=== PATIENT | female | born 1955 | race American Indian/Alaskan Native ===

== ENCOUNTER 2016-11-15 22:00 | Emergency (ER) | payer SELFPAY ==
[2016-11-15 22:19] VITALS: BP 151/103
[2016-11-16] MEDS ORDERED: BACTRIM DS PO ONE (02:37)
[2016-11-16] MEDS ORDERED: KEFLEX PO ONE (02:37)
[2016-11-16] MEDS ORDERED: MOTRIN PO ONE (02:38)
--- NOTE | 2016-11-16 02:42 | Emergency Department Report ---
ED Extremity Problem HPI - General Chief complaint: Animal Bite Stated complaint: POSS SPIDER BITES Time Seen by Provider: 11/16/16 02:02 Source: patient Mode of arrival: Ambulatory Limitations: No Limitations - History of Present Illness Initial comments: 60-year-old female past medical history hypertension presents with complaint of one day of bug bites to left ear and left inner arm. Also states she has had irritation and redness of the external left ear for one day. Patient denies any fevers chills denies any chest pain abdominal pain nausea or vomiting. States that she is suspicious that she may have been bitten by a spider in her home. Patient visibly showing the redness in her left inner arm region. Denies any headache or dizziness. MD Complaint: extremity pain Onset/Timin -: days(s) Location: left History of Same: No Severity scale (0 -10): 5 Quality: aching Consistency: constant Associated Symptoms: denies other symptoms - Related Data Previous Rx's Medication Instructions Recorded Last Taken Type HYDROcodone/APAP 5-325 [[place] 1 - 2 each PO Q6HR PRN #12 tablet 11/29/15 Unknown Rx 5/325] Levofloxacin [Levaquin] 750 mg PO QDAY #10 tablet 11/29/15 Unknown Rx Sulfamethoxazole/Trimethoprim 1 each PO BID #20 tablet 11/29/15 Unknown Rx [Bactrim DS TAB] Cephalexin [Keflex] 500 mg PO Q12HR #14 cap 11/16/16 Unknown Rx Ciprofloxacin HCl [Ciprofloxacin 500 mg PO Q12H #14 tab 11/16/16 Unknown Rx TAB] Ibuprofen [Motrin] 800 mg PO Q8HR PRN #30 tablet 11/16/16 Unknown Rx Sulfamethoxazole/Trimethoprim 1 each PO BID #14 tablet 11/16/16 Unknown Rx [Bactrim DS TAB] Allergies Allergy/AdvReac Type Severity Reaction Status Date / Time acetaminophen [From Percocet] Allergy Hives Verified 05/16/15 01:51 oxycodone HCl [From Percocet] Allergy Hives Verified 05/16/15 01:51 ED Review of Systems ROS: Stated complaint: POSS SPIDER BITES Other details as noted in HPI Constitutional: denies: chills, fever Eyes: denies: eye pain, eye discharge, vision change ENT: denies: ear pain, throat pain Respiratory: denies: cough, shortness of breath, wheezing Cardiovascular: denies: chest pain, palpitations Endocrine: no symptoms reported Gastrointestinal: denies: abdominal pain, nausea, diarrhea Genitourinary: denies: urgency, dysuria, discharge Musculoskeletal: denies: back pain, joint swelling, arthralgia Skin: denies: rash, lesions Neurological: denies: headache, weakness, paresthesias Psychiatric: denies: anxiety, depression Hematological/Lymphatic: denies: easy bleeding, easy bruising ED Past Medical Hx - Past Medical History Hx Hypertension: Yes Hx Psychiatric Treatment: Yes (Depression) - Surgical History Additional Surgical History: Hysterectomy - Social History Smoking Status: Never Smoker Substance Use Type: None - Medications Home Medications: Home Medications Medication Instructions Recorded Confirmed Last Taken Type HYDROcodone/APAP 5-325 [[place] 1 - 2 each PO Q6HR PRN #12 tablet 11/29/15 Unknown Rx 5/325] Levofloxacin [Levaquin] 750 mg PO QDAY #10 tablet 11/29/15 Unknown Rx Sulfamethoxazole/Trimethoprim 1 each PO BID #20 tablet 11/29/15 Unknown Rx [Bactrim DS TAB] Cephalexin [Keflex] 500 mg PO Q12HR #14 cap 11/16/16 Unknown Rx Ciprofloxacin HCl [Ciprofloxacin 500 mg PO Q12H #14 tab 11/16/16 Unknown Rx TAB] Ibuprofen [Motrin] 800 mg PO Q8HR PRN #30 tablet 11/16/16 Unknown Rx Sulfamethoxazole/Trimethoprim 1 each PO BID #14 tablet 11/16/16 Unknown Rx [Bactrim DS TAB] ED Physical Exam - General Limitations: No Limitations General appearance: alert, in no apparent distress - Head Head exam: Present: atraumatic, normocephalic - Eye Eye exam: Present: normal appearance, PERRL, EOMI - ENT ENT exam: Present: mucous membranes moist - Expanded ENT Exam Expanded Ear exam: Present: other (visible erythema left external helix region. No palpable fluctuance no visible abscess. There is no mastoid tenderness on palpation on clinical exam bilaterally. On inspection both auditory canals on otoscopic exam appear normal) Mouth exam: Present: normal external inspection - Neck Neck exam: Present: normal inspection, full ROM - Respiratory Respiratory exam: Present: normal lung sounds bilaterally. Absent: respiratory distress - Cardiovascular Cardiovascular Exam: Present: regular rate, normal rhythm. Absent: systolic murmur, diastolic murmur, rubs, gallop - GI/Abdominal GI/Abdominal exam: Present: soft, normal bowel sounds - Extremities Exam Extremities exam: Present: normal inspection - Expanded Upper Extremity Exam Left Shoulder Exam: Present: normal inspection, full ROM Upper Arm exam: Present: full ROM (range of motion left upper extremity intact shoulder elbow pronation supination in distal and), tenderness (visible red indurated region left inner bicep region from upper arm to elbow on the medial aspect of upper arm), erythema Elbow exam: Present: normal inspection, full ROM Forearm Wrist exam: Present: normal inspection, full ROM Hand Wrist exam: Present: normal inspection, full ROM Neuro motor exam: Present: wrist extension intact, thumb opposition intact, thumb IP flexion intact, thumb adduction intact, fingers 2-5 abduction intact Vascular: Present: normal capillary refill (capillary refill less than one second all fingers, distal sensation intact), radial pulse (distal radial pulse strong) - Back Exam Back exam: Present: normal inspection - Neurological Exam Neurological exam: Present: alert, oriented X3 - Psychiatric Psychiatric exam: Present: normal affect, normal mood - Skin Skin exam: Present: warm, dry, intact, normal color. Absent: rash - Expanded Skin Exam Expanded Description of rash: Present: erythematous 1 - Area of indurated erythematous cellulitic skin here no palpable abscess or fluctuance ED Course Vital Signs 11/15/16 22:14 Temperature 98.1 F Pulse Rate 73 Respiratory 16 Rate Blood Pressure 151/103 O2 Sat by Pulse 98 Oximetry ED Medical Decision Making - Medical Decision Making A/P: possible early perichondritis left ear, left upper extremity cellulitis 1-empiric coverage for left upper extremity cellulitis with Bactrim and Keflex, borders of erythema marked left inner bicep region. I advised patient to return in 48 hours for wound check or to return if an abscess forms for any fever or chills or significant spread of cellulitis 2-examination of external ear shows some evidence of early perichondritis at [place], no palpable fluctuance no visible abscess no visible purulent discharge. On otoscopic exam no mastoid tenderness b/l OR ear canal involvement. patient's hearing is intact on clinical exam. Will treat patient empirically for early perichondritis with ciprofloxacin. Patient referred to ENT. I explained to the patient what my concern is clinically and she stated that she understood and will follow up with ENT and take antibiotics as prescribed and to return to the ED for any worsening swelling redness fevers or chills difficulty hearing or any headaches. 3-Motrin 800 mg when necessary Critical care attestation.: If time is entered above; I have spent that time in minutes in the direct care of this critically ill patient, excluding procedure time. ED Disposition Clinical Impression: Cellulitis of left upper arm, Perichondritis of left external ear Disposition: DC- TO HOME OR SELFCARE Is pt being admited?: No Does the pt Need Aspirin: No Condition: Stable Instructions: Cellulitis (ED) Prescriptions: Cephalexin [Keflex] 500 mg PO Q12HR #14 cap Ciprofloxacin HCl [Ciprofloxacin TAB] 500 mg PO Q12H #14 tab Ibuprofen [Motrin] 800 mg PO Q8HR PRN #30 tablet PRN Reason: Pain Sulfamethoxazole/Trimethoprim [Bactrim DS TAB] 1 each PO BID #14 tablet Referrals: IVORY PATRICIO MD [Staff Physician] - 3-5 Days LYDIA GALO MD [Staff Physician] - 3-5 Days [facility] [Provider Group] - 3-5 Days [facility] [Provider Group] - 3-5 Days Forms: Accompanied Note, Work/School Release Form(ED) Time of Disposition: 02:47
== END 2016-11-16 03:08 | disposition home or self-care (01) ==
LOC: ED 22:00
DX: S40.862A Insect bite (nonvenomous) of left upper arm, initial encounter (principal); S00.462A Insect bite (nonvenomous) of left ear, initial encounter; L03.114 Cellulitis of left upper limb; H61.002 Unspecified perichondritis of left external ear; F32.9 Major depressive disorder, single episode, unspecified; Z88.8 Allergy status to other drugs, medicaments and biological substances; Z88.6 Allergy status to analgesic agent; I10 Essential (primary) hypertension; W57.XXXA Bitten or stung by nonvenomous insect and other nonvenomous arthropods, initial encounter; Y93.89 Activity, other specified; Y99.8 Other external cause status; Y92.89 Other specified places as the place of occurrence of the external cause
CPT/HCPCS: 99282

== ENCOUNTER 2019-12-06 16:52 | Emergency (ER) | payer MEDICARE ==
[2019-12-06 18:12] LABS: Basophils # (Auto) 0.1 K/mm3 (0.0-0.1); Basophils % (Auto) 1.2 % (0.0-1.8); Eosinophils # (Auto) 0.1 K/mm3 (0.0-0.4); Eosinophils % (Auto) 1.5 % (0.0-4.3); Hematocrit 37.8 % (30.3-42.9); Hemoglobin 12.3 gm/dl (10.1-14.3); Lymphocytes # (Auto) 1.5 K/mm3 (1.2-5.4); Mean Corpuscular HGB Conc 33 % (30-34); Mean Corpuscular Volume 82 fl (79-97); Monocytes # (Auto) 0.3 K/mm3 (0.0-0.8); Monocytes % (Auto) 5.4 % (0.0-7.3); Platelet Count 273 K/mm3 (140-440)
[2019-12-06 18:24] LABS: BUN/Creatinine Ratio 15; Blood Urea Nitrogen 17 mg/dL (7-17); Hemolysis Index 21
--- NOTE | 2019-12-06 22:26 | Emergency Department Report ---
HPI - General Chief Complaint: Psych Time Seen by Provider: 12/06/19 22:14 - HPI HPI: Room 16 The patient is a 64-year-old female present with a chief complaint of depression and suicidal ideation. The patient states she is felt depressed for 2 weeks. Patient states she felt like she was going to harm herself. The patient stated her plan was to cut her wrists. When asked if she is done anything to try to hurt herself in the past 2 weeks since she has had the thoughts the patient states she has "used drugs." Patient admits to crack use and states her last use occurred yesterday ED Past Medical Hx - Past Medical History Previous Medical History?: Yes Hx Hypertension: Yes Hx Psychiatric Treatment: Yes (Depression) - Surgical History Past Surgical History?: Yes Additional Surgical History: Hysterectomy - Family History Family history: no significant - Social History Smoking Status: Never Smoker Substance Use Type: None - Medications Home Medications: Home Medications Medication Instructions Recorded Confirmed Last Taken Type HYDROcodone/APAP 5-325 [[place] 1 - 2 each PO Q6HR PRN #12 tablet 11/29/15 Un known Rx 5/325] Sulfamethoxazole/Trimethoprim 1 each PO BID #20 tablet 11/29/15 Unknown Rx [Bactrim DS TAB] levoFLOXacin [Levaquin] 750 mg PO QDAY #10 tablet 11/29/15 Unknown Rx Ciprofloxacin HCl [Ciprofloxacin 500 mg PO Q12H #14 tab 11/16/16 Unknown Rx TAB] Ibuprofen [Motrin] 800 mg PO Q8HR PRN #30 tablet 11/16/16 Unknown Rx Sulfamethoxazole/Trimethoprim 1 each PO BID #14 tablet 11/16/16 Unknown Rx [Bactrim DS TAB] cephALEXin [Keflex] 500 mg PO Q12HR #14 cap 11/16/16 Unknown Rx ED Review of Systems ROS: Stated complaint: SUICIDAL Other details as noted in HPI Constitutional: no symptoms reported Respiratory: no symptoms reported Endocrine: no symptoms reported Psychiatric: depression, suicidal thoughts Physical Exam - Physical Exam Vital Signs: Vital Signs 12/06/19 16:58 Temperature 98 F Pulse Rate 105 H Respiratory 16 Rate Blood Pressure 180/106 [Right] O2 Sat by Pulse 97 Oximetry Physical Exam: GENERAL: The patient is well-developed well-nourished female sitting in chair not appearing to be in acute distress. [] HEENT: Normocephalic. Atraumatic. Extraocular motions are intact. Patient has moist mucous membranes. NECK: Supple. Trachea midline CHEST/LUNGS: Clear to auscultation. There is no respiratory distress noted. HEART/CARDIOVASCULAR: Regular. There is no tachycardia. There is no gallop rub or murmur. ABDOMEN: Abdomen is soft, nontender. Patient has normal bowel sounds. There is no abdominal distention. SKIN: There is no rash. There is no edema. There is no diaphoresis. NEURO: The patient is awake, alert, and oriented. The patient is cooperative. The patient has no focal neurologic deficits. The patient has normal speech MUSCULOSKELETAL: There is no evidence of acute injury. ED Course Vital Signs 12/06/19 16:58 Temperature 98 F Pulse Rate 105 H Respiratory 16 Rate Blood Pressure 180/106 [Right] O2 Sat by Pulse 97 Oximetry ED Medical Decision Making - Lab Data Result diagrams: 12/06/19 17:34 12/06/19 17:34 Laboratory Tests 12/06/19 12/06/19 12/06/19 17:34 17:34 17:34 WBC RBC Hgb Hct MCV MCH MCHC RDW Plt Count Lymph % (Auto) [place] % (Auto) Eos % (Auto) Baso % (Auto) Lymph # [place] # Eos # Baso # Seg Neutrophils % Seg Neutrophils # Sodium 141 Potassium 3.8 Chloride 104.0 Carbon Dioxide 21 L Anion Gap 20 BUN 17 Creatinine 1.1 Estimated GFR > 60 BUN/Creatinine Ratio 15 Glucose 88 Calcium 10.0 Urine Color Urine Turbidity Urine pH Ur Specific [place] Urine Protein Urine Glucose (UA) Urine Ketones Urine Blood Urine Nitrite Urine Bilirubin Urine Urobilinogen Ur Leukocyte Esterase Urine WBC (Auto) Urine RBC (Auto) U Epithel Cells (Auto) Urine Bacteria (Auto) Urine Mucus Salicylates < 0.3 L Urine Opiates Screen Urine Methadone Screen Acetaminophen 5.0 L Ur Barbiturates Screen Ur Phencyclidine Scrn Ur Amphetamines Screen U Benzodiazepines Scrn Urine Cocaine Screen U Marijuana (THC) Screen Drugs of Abuse Note Plasma/Serum Alcohol 12/06/19 12/06/19 12/06/19 17:34 17:34 Unknown WBC 4.7 RBC 4.60 Hgb 12.3 Hct 37.8 MCV 82 MCH 27 L MCHC 33 RDW 17.0 H Plt Count 273 Lymph % (Auto) 32.0 [place] % (Auto) 5.4 Eos % (Auto) 1.5 Baso % (Auto) 1.2 Lymph # 1.5 [place] # 0.3 Eos # 0.1 Baso # 0.1 Seg Neutrophils % 59.9 Seg Neutrophils # 2.8 Sodium Potassium Chloride Carbon Dioxide Anion Gap BUN Creatinine Estimated GFR BUN/Creatinine Ratio Glucose Calcium Urine Color Yellow Urine Turbidity Slightly-cloudy Urine pH 6.0 Ur Specific [place] 1.023 Urine Protein <15 mg/dl Urine Glucose (UA) Neg Urine Ketones Neg Urine Blood Sm Urine Nitrite Pos Urine Bilirubin Neg Urine Urobilinogen < 2.0 Ur Leukocyte Esterase Neg Urine WBC (Auto) 7.0 H Urine RBC (Auto) 3.0 U Epithel Cells (Auto) 3.0 Urine Bacteria (Auto) 4+ Urine Mucus 1+ Salicylates Urine Opiates Screen Urine Methadone Screen Acetaminophen Ur Barbiturates Screen Ur Phencyclidine Scrn Ur Amphetamines Screen U Benzodiazepines Scrn Urine Cocaine Screen U Marijuana (THC) Screen Drugs of Abuse Note Plasma/Serum Alcohol < 0.01 12/06/19 Unknown WBC RBC Hgb Hct MCV MCH MCHC RDW Plt Count Lymph % (Auto) [place] % (Auto) Eos % (Auto) Baso % (Auto) Lymph # [place] # Eos # Baso # Seg Neutrophils % Seg Neutrophils # Sodium Potassium Chloride Carbon Dioxide Anion Gap BUN Creatinine Estimated GFR BUN/Creatinine Ratio Glucose Calcium Urine Color Urine Turbidity Urine pH Ur Specific [place] Urine Protein Urine Glucose (UA) Urine Ketones Urine Blood Urine Nitrite Urine Bilirubin Urine Urobilinogen Ur Leukocyte Esterase Urine WBC (Auto) Urine RBC (Auto) U Epithel Cells (Auto) Urine Bacteria (Auto) Urine Mucus Salicylates Urine Opiates Screen Presumptive negative Urine Methadone Screen Presumptive negative Acetaminophen Ur Barbiturates Screen Presumptive negative Ur Phencyclidine Scrn Presumptive negative Ur Amphetamines Screen Presumptive negative U Benzodiazepines Scrn Presumptive negative Urine Cocaine Screen Presumptive positive U Marijuana (THC) Screen Presumptive negative Drugs of Abuse Note Disclamer Plasma/Serum Alcohol - Differential Diagnosis Suicidal ideation, depression Critical care attestation.: If time is entered above; I have spent that time in minutes in the direct care of this critically ill patient, excluding procedure time. ED Disposition Clinical Impression: Suicidal ideation, Depression Disposition: DC/TX-65 PSY HOSP/PSY UNIT Is pt being admited?: No Does the pt Need Aspirin: No Condition: Stable [facility]Primary Care Provider[facility] - 3-5 Days Time of Disposition: 22:26 (Awaiting acceptance)
[2019-12-06 23:18] LABS: Amphetamine Screen,Urine PRESUMPTIVE NEGATIVE; Benzodiazepines Screen,Urine PRESUMPTIVE NEGATIVE; Cannabinoid Screen,Urine PRESUMPTIVE NEGATIVE; Cocaine Screen,Urine PRESUMPTIVE POSITIVE; Methadone Screen,Urine PRESUMPTIVE NEGATIVE; Opiate Screen,Urine PRESUMPTIVE NEGATIVE
[2019-12-06 23:28] LABS: Bacteria,Urine 4+ /HPF (Negative); Bilirubin,Urine NEG (Negative); Blood,Urine SM (Negative); Color,Urine Yellow (Yellow); Mucus,Urine 1+ /HPF; Protein,Urine <15 mg/dL mg/dL (Negative); Urobilinogen,Urine < 2.0 mg/dL (<2.0)
--- NOTE | 2019-12-07 11:29 | Consultation ---
History of Present Illness - Reason for Consult Consult date: 12/07/19 Reason for consult: SI, depression - History of Present Psychiatric Illness Skylar Dominguez is a 64y/o female patient who presented to the ER with suicidal thoughts with plan to cut her wrist. During my interview with the patient today, she is lying down resting. She is awake. She is a/o x 3. She is calm and cooperative. The patient states she is "really depressed." She says "for the last three days I've been feeling like I want to harm myself so I came here." The patient says she did "crack yesterday." She denies alcohol or regular nicotine use. She says she's "been having a lot of racing thoughts and a lack of focus." She denies hallucinations of any kind. The patient denies any suicidal attempts in the past. 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 Behavior: Calm and cooperative Mood: "depressed" Affect: Congruent with stated mood Thought Process: Goal directed Speech: normal tone and pace Thought Content Suicidal: Yes Homicidal: Denies Hallucinations: Denies Delusions: none elicited Consciousness: alert. Cognition/Memory: normal. Insight/Judgment: Limited. Diagnoses: Major Depressive Disorder, Severe w/o Psychotic Features Cocaine Use Disorder Substance Induced Mood Disorder Treatment Plan Start Abilifty 5mg po daily Start Trazodone 50mg po qhs Start Melatonin 5mg po qhs prn insomnia Start Zoloft 25mg po daily Sitter: Defer to primary Medical Per primary Disposition: The patient meets the requirement for acute inpatient psychiatric treatment. Will follow. Thank you for this consult. Medications and Allergies Allergies Allergy/AdvReac Type Severity Reaction Status Date / Time acetaminophen [From Percocet] Allergy Hives Verified 05/16/15 01:51 oxycodone HCl [From Percocet] Allergy Hives Verified 05/16/15 01:51 Home Medications Medication Instructions Recorded Confirmed Last Taken Type HYDROcodone/APAP 5-325 [[place] 1 - 2 each PO Q6HR PRN #12 tablet 11/29/15 Unknown Rx 5/325] Sulfamethoxazole/Trimethoprim 1 each PO BID #20 tablet 11/29/15 Unknown Rx [Bactrim DS TAB] levoFLOXacin [Levaquin] 750 mg PO QDAY #10 tablet 11/29/15 Unknown Rx Ciprofloxacin HCl [Ciprofloxacin 500 mg PO Q12H #14 tab 11/16/16 Unknown Rx TAB] Ibuprofen [Motrin] 800 mg PO Q8HR PRN #30 tablet 11/16/16 Unknown Rx Sulfamethoxazole/Trimethoprim 1 each PO BID #14 tablet 11/16/16 Unknown Rx [Bactrim DS TAB] cephALEXin [Keflex] 500 mg PO Q12HR #14 cap 11/16/16 Unknown Rx Mental Status Exam - Vital signs Last Vital Signs Temp 98.3 F 12/07/19 09:49 Pulse 74 12/07/19 09:49 Resp 17 12/07/19 09:49 BP 170/83 12/07/19 09:49 Pulse Ox 97 12/07/19 09:49 Results Result Diagrams: 12/06/19 17:34 12/06/19 17:34 Abnormal lab results 12/06/19 12/06/19 12/06/19 Range/Units 17:34 17:34 17:34 MCH (28-32) pg RDW (13.2-15.2) % Carbon Dioxide 21 L (22-30) mmol/L Urine WBC (Auto) (0.0-6.0) /HPF Salicylates < 0.3 L (2.8-20.0) mg/dL Acetaminophen 5.0 L (10.0-30.0) ug/mL 12/06/19 12/06/19 Range/Units 17:34 Unknown MCH 27 L (28-32) pg RDW 17.0 H (13.2-15.2) % Carbon Dioxide (22-30) mmol/L Urine WBC (Auto) 7.0 H (0.0-6.0) /HPF Salicylates (2.8-20.0) mg/dL Acetaminophen (10.0-30.0) ug/mL All other labs normal.
[2019-12-07] MEDS: SERTRALINE 25 MG TAB PO SCH (13:00)
[2019-12-07] MEDS: ARIPiprazole 5 MG TAB PO SCH (13:00)
[2019-12-07] MEDS ORDERED: IBUPROFEN 600 MG TAB PO ONE (13:21)
[2019-12-07] MEDS ORDERED: MELATONIN 5 MG TAB PO PRN (22:00)
[2019-12-07] MEDS ORDERED: traZODone 50 MG TAB PO SCH (22:00)
[2019-12-08 09:00] VITALS: BP 154/85
--- NOTE | 2019-12-08 10:29 | Progress Note ---
Subjective - Reason for Consult Consult date: 12/08/19 Reason for consult: SI - Chief Complaint Chief complaint: During my interview today, the patient is lying down asleep. She easily arouses. She is oriented x . She says her suicidal thoughts "come and go." The patient verbalizes feeling "depressed." Her affect is flat. She says she slept okay. The patient denies any problems with her appetite. She denies hallucinations of any kind. REVIEW OF SYSTEMS Constitutional: Negative for weight loss ENT: Negative for stridor Respiratory: Negative for cough or hemoptysis All other systems reviewed and are negative MSE Appearance: Wearing appropriate clothing. Behavior: Calm and cooperative Mood: "depressed" Affect: Congruent with stated mood Thought Process: Goal directed Speech: normal tone and pace Thought Content Suicidal: Yes Homicidal: Denies Hallucinations: Denies Delusions: none elicited Consciousness: alert. Cognition/Memory: normal. Insight/Judgment: Limited. Diagnoses: Major Depressive Disorder, Severe w/o Psychotic Features Cocaine Use Disorder Substance Induced Mood Disorder Treatment Plan Continue current regimen. Sitter: Defer to primary Medical Per primary Disposition: The patient meets the requirement for acute inpatient psychiatric treatment. Will follow. Thank you for this consult. Mental Status Exam - Vital signs Last Vital Signs Temp 98.5 F 12/08/19 08:53 Pulse 69 12/08/19 08:53 Resp 18 12/08/19 08:53 BP 154/85 12/08/19 08:53 Pulse Ox 99 12/08/19 08:53
[2019-12-08] MEDS: ARIPiprazole 5 MG TAB PO SCH (11:28)
[2019-12-08] MEDS: SERTRALINE 25 MG TAB PO SCH (11:28)
== END 2019-12-08 13:48 ==
LOC: ED 16:52 → EEVIPCON 16:52 → ED 12-08 13:48
DX: R45.851 Suicidal ideations (principal); F32.9 Major depressive disorder, single episode, unspecified; I10 Essential (primary) hypertension; Z90.710 Acquired absence of both cervix and uterus; Z79.1 Long term (current) use of non-steroidal anti-inflammatories (NSAID); Z79.2 Long term (current) use of antibiotics; Z79.899 Other long term (current) drug therapy; Z88.8 Allergy status to other drugs, medicaments and biological substances
CPT/HCPCS: 36415; 80048; 80307; 80320; 81001; 85025; G0480; U0003-CS